=== PATIENT | female | born 1970 | race Two or more races ===

== ENCOUNTER 2021-01-20 11:37 | Emergency (ER) | payer BC ==
[~2021-01-20] VITALS: Ht 157.5 cm; Wt 72.0 kg
[2021-01-20 12:28] LABS: BILIRUBIN,URINE NEGATIVE (NEG); CLARITY,URINE CLEAR; COLOR,URINE YELLOW; NITRITE,URINE NEGATIVE (NEG); PH,URINE 6.5 (<5.0-8.0); PROTEIN,URINE NEGATIVE (NEG-TRACE); UROBILINOGEN,URINE 0.2 mg/dL (0.2 mg/dL)
[2021-01-20] MEDS ORDERED: FAMOTIDINE 20 MG TABLET. PO ONE (12:30)
[2021-01-20] MEDS ORDERED: methylPREDNISolone ACETATE 80 MG/ML VIAL. IM ONE (12:30)
[2021-01-20] MEDS ORDERED: diphenhydrAMINE HCL 25 MG CAPSULE PO ONE (12:30)
[2021-01-20] MEDS ORDERED: PRED20TA PO (12:35)
[2021-01-20] MEDS ORDERED: FAMO-63 PO (12:35)
--- NOTE | 2021-01-20 12:36 | PHYS DOC ---
General Adult EDM: Chief Complaint: FACE PROBLEM HPI: HPI: Patient is a 50 female presents to the emergency department complaining of poison kate to her face. Patient reports taking out the trash this past and came in contact with poison kate, forgot to wash her hands before touching her face. Patient reports itching notified by the patient's ED nurse that the patient wishes to leave AGAINST MEDICAL ADVICE. The patient and I had an extensive discussion regarding the risks of leaving AMA including but not limited to , permanent disability, and worsening condition. Also had an extensive discussion with the patient regarding the benefits of excepting admission and transfer which include promotion of health and wellness, and ongoing treatment of disease processes. The patient acknowledged the risks and benefits and agreed to take full responsibility of leaving AGAINST MEDICAL ADVICE. The patient was alert and oriented x4 and had full medical decision- making capability when they signed the AMA forms. Rash to her face and upper neck area and around her ears. Patient denies shortness of breath, denies tongue swelling or lip swelling. Denies visual disturbances, denies headaches or syncopal episodes. Patient denies rashes to other part of her body. Patient denies other physical complaints or physical concerns. Review of Systems: Review of Systems: 14 body systems of review of systems have been reviewed. See HPI for pertinent positives and negative responses, otherwise all other systems are negative, nonpertinent or noncontributory. Constitutional: Negative except as outlined in HPI above. Skin: Negative except as outlined in HPI above. Eyes: Negative except as outlined in HPI above. HENT: Negative except as outlined in HPI above. Respiratory: Negative except as outlined in HPI above. Cardiovascular: Negative except as outlined in HPI above. GI: Negative except as outlined in HPI above. : Negative except as outlined in HPI above. Musculoskeletal: Negative except as outlined in HPI above. Integument: Negative except as outlined in HPI above. Neurologic: Negative except as outlined in HPI above. Endocrine: Negative except as outlined in HPI above. Lymphatic: Negative except as outlined in HPI above. Psychiatric: Negative except as outlined in HPI above. Heart Score: C/O Chest Pain: No Risk Factors: Risk Factors: DM, Current or recent (<one month) smoker, HTN, HLP, family history of CAD, obesity. Risk Scores: Score 0 - 3: 2.5% MACE over next 6 weeks - Discharge Home Score 4 - 6: 20.3% MACE over next 6 weeks - Admit for Clinical Observation Score 7 - 10: 72.7% MACE over next 6 weeks - Early Invasive Strategies Current Medications: Current Medications Medications (Trade) Dose Ordered Sig/Zahida Start Time Stop Time Status Last Admin Dose Admin Diphenhydramine HCl (Benadryl) 25 mg 1X ONCE 01/20/21 12:30 01/20/21 12:31 Famotidine (Pepcid) 40 mg 1X ONCE 01/20/21 12:30 01/20/21 12:31 Methylprednisolone Acetate (DEPO-Medrol 80MG VIAL) 80 mg 1X ONCE 01/20/21 12:30 01/20/21 12:31 Allergies: Allergies: Allergies Coded Allergies Type Severity Reaction Last Updated Verified No Known Drug Allergies 01/20/21 No Physical Exam: PE: Constitutional: Well developed, well nourished, no acute distress, non-toxic appearance. 50-year-old female in no apparent distress. HENT: Normocephalic, atraumatic. No drooling, no trismus, no pharyngeal erythema or swelling, patient speaking in normal voice tones. No lymphadenopathy of the head or neck. Eyes: Conjunctiva normal, no discharge. Neck: Normal range of motion, no stridor. Cardiovascular: No cyanosis appreciated, distal cap refill less than 2 seconds. Lungs & Thorax: Patient is in no respiratory distress, no audible adventitious lung sounds appreciated. Lung sounds clear to auscultate all lung gresham Abdomen: Nontender, no abnormalities noted. Skin: Warm, dry, no erythema, no rash. Erythematous skin rash to face with lichenification, linear abrasion streaking near scalp line/forehead. Skin intact, no blisters. No weeping. Back: No tenderness, no deformities. Extremities: No tenderness, no cyanosis, no clubbing, ROM intact, no edema. Neurologic: Alert and oriented X 3, normal motor function, normal sensory function, no focal deficits noted. Psychologic: Affect normal, judgement normal, mood normal. EKG: EKG: [] Radiology/Procedures: Radiology/Procedures: [] Course & Med Decision Making: Course & Med Decision Making Pertinent Labs and Imaging studies reviewed. (See chart for details) 50-year-old female, vital signs reviewed, presents emerged from concerning poison kate contact face this past . Patient's physical examination and presentation consistent with patient's explanation of events. Discussed with patient will diagnose with contact dermatitis, most likely plant irritant such as poison kate as patient explained will treat with IM steroid injection, Pepcid, Benadryl, discussed with patient prescription for prednisone and Pepcid at home, [id number] Benadryl use, [id number] poison kate products such as Benadryl/Caladryl. Patient gave verbal understanding of discharge home instructions, amendable to ED discharge instructions. Discussed with the patient all findings and diagnostic testing as well as the need to follow-up with their primary care provider for further evaluation and treatment or return to the ED if any new or worsening symptoms. Strict return precautions were also discussed at length, the patient voiced understanding and agreement with the discharge planning. The patient was nontoxic in appearance, in no apparent distress, and hemodynamically stable at the time of disposition. Dragon Disclaimer: Wandoujia Disclaimer: This electronic medical record was generated, in whole or in part, using a voice recognition dictation system. Departure Departure Impression: Primary Impression: Contact dermatitis Qualified Codes: L24.7 - Irritant contact dermatitis due to plants, except food Disposition: HOME / SELF CARE / HOMELESS Condition: GOOD Patient Instructions: Contact Dermatitis, Poison Kate Additional Instructions: You were seen in the emergency department today after a reaction from coming in contact with the poison kate plant. You were treated today with an injection of steroid, Pepcid tablets, and a Benadryl tablet. As we discussed, I am prescribing you additional steroids to use over the next 2 weeks, please take as directed until complete, I am also prescribing you Pepcid to take along with this regimen. You may use [id number] Benadryl as well as we discussed the re several [id number]-fyq-[id number] products to help with discomfort from poison kate contact such as Caladryl. Please follow-up with your primary care physician at the [facility] clinic this week for reexamination and ongoing treatment for your poison kate reaction. Thank you for visiting our Emergency Department. It was a pleasure taking care of you today in the emergency depa rtment and we appreciate you trusting us with your care. If any additional problems come up don't hesitate to return to visit us. Please follow up with your primary care provider so they can plan additional care if needed and know about the problem that you had. If symptoms worsen come back to the Emergency Department. Any concerning symptoms that start such as chest pain, shortness of air, weakness or numbness on one side of the body, running high fevers or any other concerning symptoms return to the ER. Hoy te vieron en el departamento de emergencias despus de terrence reaccin al entrar en contacto con la planta de hiedra venenosa. Hoy lo trataron con terrence inyeccin de esteroides, tabletas de Pepcid y terrence tableta de Benadryl. Parris discutimos, le estoy recetando esteroides adicionales para usar jonathon las prximas 2 semanas, por favor tmelos segn las indicaciones hasta completarlos, tamangeles le estoy recetando Pepcid para que los tome junto con adrianne rgimen. Puede usar Benadryl de venta lynn, as parris tambin discutimos all varios productos de venta lynn para ayudar con la incomodidad del contacto con la hiedra venenosa parris Caladryl. Erin un seguimiento con lyn mdico de atencin primaria en la clnica de jameel de [facility] esta semana para un nuevo exa men y tratamiento continuo para lyn reaccin a la hiedra venenosa. Amrit por visitar nuestro Departamento de Emergencias. Fue un placer atenderlo hoy en el departamento de emergencias y le agradecemos que nos haya confiado lyn atencin. Si surge algn problema adicional, no dude en volver a visitarnos. Erin un seguimiento con lyn proveedor de atencin primaria para que puedan planificar atencin adicional si es necesario y conocer el problema que tuvo. Si los sntomas empeoran, regrese al Departamento de Emergencias. Cualquier sntoma preocupante que comience, parris dolor en el pecho, falta de aire, debilidad o entumecimiento en un lado del cuerpo, fiebre barb o cualquier otro sntoma preocupante, regresa a la nelson de emergencias. Scripts Famotidine (PEPCID) 20 Mg Tablet 20 MG PO BID for contact dermatitis, #28 TAB 0 Refills Prov: STACY PETER FLORIST'S DECORATOR 01/20/21 Prednisone (PREDNISONE) 20 Mg Tablet 1 TAB PO DAILY for contact dermatitis, #49 TAB 0 Refills 3 tablets a day for 14 days, then reduce to 1 tablet a day for 7 days. Prov: STACY PETER FLORIST'S DECORATOR 01/20/21 STACY PETER FLORIST'S DECORATOR Jan 20, 2021 12:36
[2021-01-20 12:49] LABS: BACTERIA,URINE 0 /HPF (0-FEW); WBC,URINE 0 /HPF (0-4)
[2021-01-20 13:00] VITALS: BP 126/78
== END 2021-01-20 13:15 | disposition home or self-care (01) ==
LOC: ER 11:37
DX: L24.7 Irritant contact dermatitis due to plants, except food (principal)
CPT/HCPCS: 81001; 81025; 96372; 99283; J1040; Q0163